=== PATIENT | female | born 1965 | race Asian ===

== ENCOUNTER 2017-02-25 11:39 | Emergency (ER) | payer OTHER ==
[2017-02-25 11:53] VITALS: BP 103/60
--- NOTE | 2017-02-25 14:23 | UC ---
Jeffrey Nelson Angela, scribed for Deo Lantigua MD on 02/25/17 at 1240 . Back Pain HPI - HPI Summary HPI Summary: This pt is a right-handed 51 y/o female presenting to [facility] c/o upper bilateral back pain/tightness and shoulder pain x11 days. Pt reports she was moving ice into a cooler (on 02/14/17) when she felt something move in her back. She notes her pain is aggravated by movement of arms and lifting objects. Pt states she has more pain in the morning and night time. She has not taken any pain medication or used heating pads. Pt denies any UE or LE weakness, fever, chills , any other pain. She denies any allergies. - History of Current Complaint Chief Complaint: UCBackPain Stated Complaint: SHOULDER PAIN Time Seen by Provider: 02/25/17 12:22 Hx Obtained From: Patient Hx Last Menstrual Period: 1 WEEK AGO Onset/Duration: Gradual Onset Timing: Lasting Days Pain Intensity: 4 Pain Scale Used: 0-10 Numeric Back Pain: Is Discrete @ - Upper back bilaterally Character: Stiffness Aggravating: Movement, Lifting Alleviating: Nothing Associated Signs And Symptoms: Negative: Swelling, Redness, Fever, Weakness, Numbness, Tingling, Abdominal Pain, Bladder Incontinence, Bowel Incontinence - Allergies/Home Medications Allergies/Adverse Reactions: Allergies Allergy/AdvReac Type Severity Reaction Status Date / Time No Known Allergies Allergy Verified 02/25/17 11:47 PMH/Surg Hx/FS Hx/Imm Hx - Surgical History Surgical History: None - Social History Alcohol Use: Rare Substance Use Type: None Smoking Status (MU): Never Smoked Tobacco Review of Systems Constitutional: Negative Skin: Negative Eyes: Negative ENT: Negative Respiratory: Negative Cardiovascular: Negative Gastrointestinal: Negative Motor: Negative Musculoskeletal: Other: - Upper back pain bilaterally. Neurological: Negative All Other Systems Reviewed And Are Negative: Yes Physical Exam Triage Information Reviewed: Yes Vital Signs: Initial Vital Signs Temp 98.5 F 02/25/17 11:47 Pulse 71 02/25/17 11:47 Resp 16 02/25/17 11:47 BP 103/60 02/25/17 11:47 Pulse Ox 100 02/25/17 11:47 Vital Signs Reviewed: Yes - Additional Comments The patient is well-nourished in no acute distress and in no acute pain. The skin is warm and dry and skin color reflects adequate perfusion. HEENT: The head is normocephalic and atraumatic. The pupils are equal and reactive. The conjunctivae are clear and without drainage. Nares are patent and without drainage. Mouth reveals moist mucous membranes and the throat is without erythema and exudate. The external ears are intact. The ear canals are patent and without drainage. The tympanic membranes are intact. Neck is supple with full range of motion and non-tender. Respiratory: Chest is non-tender. Lungs are clear to auscultation and breath sounds are symmetrical and equal. Cardiovascular: Hear is regular rate and rhythm. There is no murmur or rub auscultated. There is no peripheral edema and pulses are symmetrical and equal. Abdomen: The abdomen is soft and non-tender. There are normal bowel sounds heard in all four quadrants and there is no organomegaly palpated. Musculoskeletal: There is no back pain noted. Extremities are non-tender with full range of motion. There is good capillary refill. There is no peripheral edema or calf tenderness elicited. There are marked muscle spasms over the trapezius bilaterally more right than left. There is full range of motion of bilateral shoulders. Pt has pain with extension of arm bilaterally. Neurological: Patient is alert and oriented to person, place and time. The patient has symmetrical motor strength in all four extremities. There is no motor weakness in upper extremities. Psychiatric: The patient has an appropriate affect and does not exhibit any anxiety or depression. Back Pain Course/Dx - Course Course Of Treatment: Pt will be discharged with Flexeril and Naproxen. - Differential Dx/Diagnosis Differential Diagnosis/HQI/PQRI: Arthritis, Strain Provider Diagnoses: Trapezius strain left and right Discharge - Discharge Plan Condition: Stable Disposition: HOME Prescriptions: Cyclobenzaprine TAB* [Flexeril 10 MG TAB*] 10 mg PO TID PRN #30 tab PRN Reason: Pain Naproxen [Naprosyn 500 mg] 500 mg PO BID PRN #30 tab PRN Reason: pain Patient Education Materials: Muscle Strain (ED), Muscle Spasm (ED) Referrals: Caroline Herman MD [Primary Care Provider] - Additional Instructions: You have been diagnosed with trapezius strain. Please follow up with your primary care provider to assure your symptoms are improving. The documentation as recorded by the Jeffrey brennan Angela accurately reflects the service I personally performed and the decisions made by me, Deo Lantigua MD.
== END 2017-02-25 12:58 | disposition home or self-care (01) ==
LOC: UCEAST 11:39
DX: S46.812A Strain of other muscles, fascia and tendons at shoulder and upper arm level, left arm, initial encounter (principal); S46.811A Strain of other muscles, fascia and tendons at shoulder and upper arm level, right arm, initial encounter; X50.3XXA Overexertion from repetitive movements, initial encounter; Y93.89 Activity, other specified; Y92.9 Unspecified place or not applicable
CPT/HCPCS: 99212; G0463

== ENCOUNTER 2017-12-04 15:26 | Emergency (ER) | payer OTHER ==
[2017-12-04 15:42] VITALS: BP 122/74
--- NOTE | 2017-12-04 16:24 | UC ---
Lower Extremity/Ankle HPI - HPI Summary HPI Summary: 51 female s/p fall 2 days ago at work fell onto a railing and broke fall with B/L hand and knees forward but also injured her left buttock and hip area. Able to ambulate but feels sore so would like XR's done - History of Current Complaint Chief Complaint: UCLowerExtremity Stated Complaint: HIP INJURY Time Seen by Provider: 12/04/17 15:37 Hx Obtained From: Patient Hx Last Menstrual Period: 1 WEEK AGO Onset/Duration: Sudden Onset Severity Initially: Moderate Severity Currently: Moderate Pain Intensity: 2 Aggravating Factor(s): Standing, Ambulation Alleviating Factor(s): Rest Able to Bear Weight: Yes - Allergies/Home Medications Allergies/Adverse Reactions: Allergies Allergy/AdvReac Type Severity Reaction Status Date / Time No Known Allergies Allergy Verified 12/04/17 15:42 Home Medications: Home Medications NK [No Home Medications Reported] 12/04/17 [History Confirmed 12/04/17] PMH/Surg Hx/FS Hx/Imm Hx Previously Healthy: Yes - Surgical History Surgical History: None - Social History Alcohol Use: Rare Substance Use Type: None Smoking Status (MU): Never Smoked Tobacco Review of Systems Constitutional: Negative Skin: Negative Eyes: Negative ENT: Negative Respiratory: Negative Cardiovascular: Negative Gastrointestinal: Negative Genitourinary: Negative Motor: Negative Neurovascular: Negative Musculoskeletal: Other: - multiple MS pain due to fall Neurological: Negative Psychological: Negative All Other Systems Reviewed And Are Negative: Yes Physical Exam Triage Information Reviewed: Yes Appearance: No Pain Distress Vital Signs: Initial Vital Signs Temp 37.1 C 12/04/17 15:35 Pulse 90 12/04/17 15:35 Resp 18 12/04/17 15:35 BP 122/74 12/04/17 15:35 Pulse Ox 99 12/04/17 15:35 Eye Exam: Normal ENT Exam: Normal Dental Exam: Normal Neck exam: Normal Neck: Positive: 1 Respiratory Exam: Normal Cardiovascular Exam: Normal Abdominal Exam: Normal Musculoskeletal: Positive: Strength Intact, ROM Intact, No Edema, Other: - mild ecchymosis on left buttock but NO bony tenderness over B/L UE, Neg TTP over left hip, B/L knee and B/L hands/wrists Neurological Exam: Normal Psychological Exam: Normal Skin Exam: Normal Lower Extremity Course/Dx - Course Course Of Treatment: XR of B/L knee, left elbow, right wrist, B/L hands, left hip NEG for fx or dislocation, likely bony contusion after the fall and muscle strain related to overuse related to work - Differential Dx/Diagnosis Provider Diagnoses: mechanical fall. musculokeletal contusion. muscular strain Discharge - Sign-Out/Discharge Documenting (check all that apply): Discharge/Admit/Transfer - Discharge Plan Condition: Stable Disposition: HOME Patient Education Materials: Contusion in Adults (ED) Forms: *Work Release Referrals: Caroline Herman MD [Primary Care Provider] - - Billing Disposition and Condition Condition: STABLE Disposition: HOME
--- NOTE | 2017-12-04 17:11 | RAD ---
INDICATION: Left hip pain since a fall 2 days earlier COMPARISON: CT of the abdomen and pelvis November 06, 2012. TECHNIQUE: 3 views of the left hip were obtained. FINDINGS: The visualized bones of the left hip are well-corticated and properly aligned. The joint spaces are normal. There is no radiographic evidence of acute fracture or dislocation. IMPRESSION: Normal radiograph of the left hip. If the patient's symptoms persist follow-up imaging is recommended.
--- NOTE | 2017-12-04 17:14 | RAD ---
INDICATION: Left hand and wrist pain 2 days after a fall COMPARISON: None. TECHNIQUE: 3 views of the left wrist and 4 views left hand were obtained REPORT: The visualized bones are properly aligned and well corticated. The joint spaces are normal.There is no fracture, dislocation or other focal osseous abnormality. IMPRESSION: Normal radiograph of the left hand and wrist. If the patient's symptoms persist, follow-up imaging is recommended.
--- NOTE | 2017-12-04 17:14 | RAD ---
INDICATION: Right elbow pain 2 days after a fall COMPARISON: None. TECHNIQUE: 2 views right elbow. REPORT: The visualized bones of the right elbow are well corticated and properly aligned. There is no radiographically apparent fracture or dislocation. There is no radiographic evidence of pathologic joint effusion. IMPRESSION: Normal radiograph of the right elbow. If the patient's symptoms persist further follow-up imaging is recommended.
--- NOTE | 2017-12-04 17:16 | RAD ---
INDICATION: Bilateral knee pain 2 days after a fall COMPARISON: None TECHNIQUE: 2 view radiograph of each knee. FINDINGS: The visualized bones are well-corticated and properly aligned. The joint spaces are properly maintained. There is no radiographic evidence of joint effusion. There is no acute fracture, dislocation or other focal bony abnormality. IMPRESSION: Normal radiograph of the bilateral knees as described above. If the patient's symptoms persist, follow-up imaging is recommended.
== END 2017-12-04 17:56 | disposition home or self-care (01) ==
LOC: UCEAST 15:26
DX: S60.222A Contusion of left hand, initial encounter (principal); S60.221A Contusion of right hand, initial encounter; S80.02XA Contusion of left knee, initial encounter; S80.01XA Contusion of right knee, initial encounter; S30.0XXA Contusion of lower back and pelvis, initial encounter; T14.8XXA Other injury of unspecified body region, initial encounter; S70.02XA Contusion of left hip, initial encounter; W18.39XA Other fall on same level, initial encounter; Y92.9 Unspecified place or not applicable; Y99.0 Civilian activity done for income or pay
CPT/HCPCS: 99211; G0463